=== PATIENT | male | born 1990 | race Caucasian/White ===

== ENCOUNTER 2020-04-24 20:46 | Emergency (ER) | payer BC ==
[2020-04-24 21:01] VITALS: BP 140/90; PULSE 88
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
[2020-04-24 21:38] LABS: CHLORIDE,CL 103 mEq/L (98-106); SODIUM,NA 142 mEq/L (136-145)
== END 2020-04-24 22:50 ==
LOC: CC.ED 20:46
DX: R25.1 Tremor, unspecified (principal); F31.2 Bipolar disorder, current episode manic severe with psychotic features; Z72.0 Tobacco use
CPT/HCPCS: 36415; 80053; 80305-QW; 80307; 81001; 85025; 86140; 93005; 99285-25

== ENCOUNTER 2020-07-26 05:53 | Emergency (ER) | payer BC ==
[2020-07-26 06:09] VITALS: BP 131/90; PULSE 78
[2020-07-26 06:32] LABS: CHLORIDE,CL 103 mEq/L (98-106)
[2020-07-26 06:33] LABS: SODIUM,NA 141 mEq/L (136-145)
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
== END 2020-07-26 09:53 ==
LOC: CC.ED 05:53
DX: F31.2 Bipolar disorder, current episode manic severe with psychotic features (principal); F51.4 Sleep terrors [night terrors]; Z20.822 Contact with and (suspected) exposure to COVID-19
CPT/HCPCS: 36415; 80053; 80305-QW; 80307; 81001; 85025; 99285; U0002

== ENCOUNTER 2022-04-24 20:24 | Emergency (ER) | payer BC ==
[2022-04-24] MEDS: Take Home: LORazepam 0.5 MG Tab, 2 Tab Pack PO ONE (20:44)
[2022-04-24] MEDS: LORazepam 0.5 MG Tab PO ONE (20:44)
== END 2022-04-24 20:48 | disposition home or self-care (01) ==
LOC: CC.ED 20:24
DX: F41.9 Anxiety disorder, unspecified (principal); Z72.0 Tobacco use
CPT/HCPCS: 99283; A9270-GY

== ENCOUNTER 2022-05-24 16:26 | Emergency (ER) | payer BC ==
[2022-05-24] MEDS: LORazepam 0.5 MG Tab PO STA (17:10)
[2022-05-24] MEDS: Take Home: LORazepam 0.5 MG Tab, 2 Tab Pack PO ONE (17:14)
== END 2022-05-24 17:40 | disposition home or self-care (01) ==
LOC: CC.ED 16:26
DX: F41.9 Anxiety disorder, unspecified (principal)
CPT/HCPCS: 99283; 99284; A9270

== ENCOUNTER 2022-05-26 21:53 | Emergency (ER) | payer BC ==
[2022-05-26] MEDS ORDERED: Take Home: LORazepam 0.5 MG Tab, 2 Tab Pack PO ONE (22:46)
== END 2022-05-26 23:12 | disposition home or self-care (01) ==
LOC: CC.ED 21:53
DX: F41.9 Anxiety disorder, unspecified (principal); F20.9 Schizophrenia, unspecified; Z79.899 Other long term (current) drug therapy
CPT/HCPCS: 99283; 99284; A9270-GY

== ENCOUNTER 2022-06-02 14:48 | Emergency (ER) | payer BC ==
[2022-06-02] MEDS ORDERED: LORazepam 0.5 MG Tab PO ONE (15:47)
== END 2022-06-02 17:30 ==
LOC: CC.ED 14:48
DX: F30.2 Manic episode, severe with psychotic symptoms (principal); F20.9 Schizophrenia, unspecified; Z72.0 Tobacco use
CPT/HCPCS: 99284; A9270-GY